=== PATIENT | male | born 1985 | race Caucasian/White ===

== ENCOUNTER 2016-09-19 23:24 | Emergency (ER) | payer SELFPAY ==
--- NOTE | 2016-09-20 00:30 | DIAGNOSTIC IMAGING REPORT ---
PROCEDURE: CT ABDOMEN/PELVIS W/O CONTRAST INDICATION: ABDOMINAL PAIN TECHNIQUE: Noncontrast axial images with sagittal and coronal reformations. COMPARISON: None. FINDINGS: ABDOMEN: There is mild to moderate right hydronephrosis and hydroureter secondary to a 3 mm calculus located at the ureteral vesicle junction. There are 1 mm and 0.5 mm nonobstructing right lower pole renal calculi. Left kidney and ureter are normal. Gallbladder is contracted (with moderate ingested material in the stomach). Moderate stool in the right colon. Bowel pattern is otherwise normal, including appendix. Liver, spleen, pancreas, and aorta are normal. PELVIS: Pelvic structures are normal. IMPRESSION: 1. Mild to moderate right hydronephrosis and hydroureter secondary to a 3 mm calculus located at the ureteral vesicle junction. 2. There are 1 mm and 0.5 mm nonobstructing right lower pole renal calculi. 3. Moderate stool in the right colon. Consider obstipation. 4. Findings discussed with Dr. Nolan Marmolejo. All CT scans at this facility use dose modulation, iterative reconstruction, and/or weight-based dosing when appropriate to reduce radiation dose to as low as reasonably achievable.
--- NOTE | 2016-09-20 00:50 | ED CLINICAL REPORT ---
Clinical Report - Physicians/Mid Levels [facility] [address] [place] [address] 09/19/2016 23:24 [id number] Time Seen: 23:43 Apr 2016. Arrived- By private vehicle. Historian- patient. CPT: ER phys charges level 4 (#[id number]). HISTORY OF PRESENT ILLNESS Chief Complaint: FLANK PAIN. At its maximum, severity described as moderate. When seen in the E.D., severity described as moderate. Modifying factors. Not worsened by anything. Not relieved by anything. This started yesterday. It is described as "pain" and sharp and it is described as located in the right flank. No nausea, loss of appetite, vomiting or diarrhea. Similar symptoms previously: None. Recent medical care: Not recently seen/assessed. REVIEW OF SYSTEMS No constipation, black stools, hematemesis, difficulty with urination or pain with urination. No urinary frequency, fever, sore throat, chest pain or difficulty breathing. No cough, joint pain, skin rash or chills. The patient has had back pain. PAST HISTORY No history of peptic ulcer. No history of gallstones or bowel obstruction. Has not had urinary calculi. Surgeries: No prior abdominal surgery. Medications: None. None. None. None. Allergies: Erythromycin. SOCIAL HISTORY Light tobacco smoker (cigarette)- less than 1/2 a pack per day. No alcohol use or drug use. ADDITIONAL NOTES The nursing notes have been reviewed. PHYSICAL EXAM Vital Signs: 09/19/2016 23:33 BP: 134/76. HR: 85. RR: 22. O2 saturation: 100%. Appearance: Alert. Patient in mild distress. Eyes: Eyes normal inspection. ENT: Pharynx normal. Neck: Normal inspection. CVS: Normal heart rate and rhythm. Heart sounds normal. Pulses normal. Respiratory: No respiratory distress. Breath sounds normal. Chest nontender. Abdomen: Soft and nontender. Bowel sounds normal. Back: Normal inspection. No CVA tenderness or tenderness, limitation in ROM, vertebral point tenderness or muscle spasm. Skin: Skin warm. Normal skin color. No rash. Extremities: Extremities exhibit normal ROM. No lower extremity edema. Neuro: Oriented X 3. No motor deficit. No sensory deficit. Reflexes normal. LABS, X-RAYS, AND EKG Abdominal CT: A single urinary calculus is present in the right distal ureter (3 mm). There is moderate obstruction. Hydronephrosis. 2 small stones in the right kidney. Abdominal CT performed without contrast. The study was independently viewed by me, interpreted by the radiologist and discussed with the radiologist. Laboratory Tests: UA-Culture if indicated: (ERICK: 09/19/2016 23:40) ( MsgRcvd 09/20/2016 00:03) Final results Test Result Flag Units (Reference) URINE COLOR YELLOW URINE APPEARANCE SLIGHTLY HAZY URINE GLUCOSE NEGATIVE (NEGATIVE) URINE BILIRUBIN NEGATIVE (NEGATIVE) URINE KETONE NEGATIVE (NEGATIVE) URINE SPECIFIC GRAVITY 1.020 (1.010-1.030) URINE PH 6.0 (5.0-8.0) URINE PROTEIN NEGATIVE (NEGATIVE) URINE UROBILINOGEN 1.0 EU/dL (0.2-1.0) URINE NITRITE NEGATIVE (NEGATIVE) URINE BLOOD 3+ (NEGATIVE) URINE LEUK ESTERASE NEGATIVE (NEGATIVE) URINE RBC 75-100 rbc/hpf (0-1) URINE WBC 1-3 wbc/hpf (0-1) URINE EPITHELIAL CELLS NONE SEEN EPI/hpf (0-5) URINE BACTERIA NONE SEEN (NONE SEEN) URINE COMMENT CULT NOT INDICATED URINE CULTURES ARE SET-UP BASED ON THE FOLLOWING CRITERIA:POSITIVE NITRITEPOSITIVE LEUKOCYTE ESTERASEGREATER THAN 10 WHITE BLOOD CELLSMODERATE (2+) OR GREATER BACTERIA . PROGRESS AND PROCEDURES Course of Care: IV NS Toradol 30 mg IV Flomax 0.4 mg po Patient is stable. Symptoms much better. Patient/family counseled. Disposition: Discharged. Condition: stable and improved. CLINICAL IMPRESSION Ureterolithiasis (single stone) in the right ureter with renal colic and hydronephrosis. INSTRUCTIONS Do not work for two days until better. Drink plenty of fluids. (Strain urine). Warnings: Further evaluation is necessary. GENERAL WARNINGS: Return or contact your physician immediately if your condition worsens or changes unexpectedly, if not improving as expected, or if other problems arise. Prescription Medications: Zofran (orally disintegrating tablets) 4 mg: take 1 orally every 6 hours as needed for nausea. Dispense five (5). No refill. Oxycodone/APAP 5 mg/325 mg: take 1-2 tablets orally every 4 hours as needed for pain. Dispense twenty (20). No refill. Follow-up: Follow up with your doctor in two days if not better. Understanding of the discharge instructions verbalized by patient. (Electronically signed by Nolan Marmolejo MD 09/27/2016 16:03)
--- NOTE | 2016-09-20 00:50 | ED CLINICAL REPORT ---
Clinical Report - Physicians/Mid Levels [facility] [address] [place] [address] 09/19/2016 23:24 [id number] Time Seen: 23:43 Apr 2016. Arrived- By private vehicle. Historian- patient. CPT: ER phys charges level 4 (#[id number]). HISTORY OF PRESENT ILLNESS Chief Complaint: FLANK PAIN. At its maximum, severity described as moderate. When seen in the E.D., severity described as moderate. Modifying factors. Not worsened by anything. Not relieved by anything. This started yesterday. It is described as "pain" and sharp and it is described as located in the right flank. No nausea, loss of appetite, vomiting or diarrhea. Similar symptoms previously: None. Recent medical care: Not recently seen/assessed. REVIEW OF SYSTEMS No constipation, black stools, hematemesis, difficulty with urination or pain with urination. No urinary frequency, fever, sore throat, chest pain or difficulty breathing. No cough, joint pain, skin rash or chills. The patient has had back pain. PAST HISTORY No history of peptic ulcer. No history of gallstones or bowel obstruction. Has not had urinary calculi. Surgeries: No prior abdominal surgery. Medications: None. None. None. None. Allergies: Erythromycin. SOCIAL HISTORY Light tobacco smoker (cigarette)- less than 1/2 a pack per day. No alcohol use or drug use. ADDITIONAL NOTES The nursing notes have been reviewed. PHYSICAL EXAM Vital Signs: 09/19/2016 23:33 BP: 134/76. HR: 85. RR: 22. O2 saturation: 100%. Appearance: Alert. Patient in mild distress. Eyes: Eyes normal inspection. ENT: Pharynx normal. Neck: Normal inspection. CVS: Normal heart rate and rhythm. Heart sounds normal. Pulses normal. Respiratory: No respiratory distress. Breath sounds normal. Chest nontender. Abdomen: Soft and nontender. Bowel sounds normal. Back: Normal inspection. No CVA tenderness or tenderness, limitation in ROM, vertebral point tenderness or muscle spasm. Skin: Skin warm. Normal skin color. No rash. Extremities: Extremities exhibit normal ROM. No lower extremity edema. Neuro: Oriented X 3. No motor deficit. No sensory deficit. Reflexes normal. LABS, X-RAYS, AND EKG Abdominal CT: A single urinary calculus is present in the right distal ureter (3 mm). There is moderate obstruction. Hydronephrosis. 2 small stones in the right kidney. Abdominal CT performed without contrast. The study was independently viewed by me, interpreted by the radiologist and discussed with the radiologist. Laboratory Tests: UA-Culture if indicated: (ERICK: 09/19/2016 23:40) ( MsgRcvd 09/20/2016 00:03) Final results Test Result Flag Units (Reference) URINE COLOR YELLOW URINE APPEARANCE SLIGHTLY HAZY URINE GLUCOSE NEGATIVE (NEGATIVE) URINE BILIRUBIN NEGATIVE (NEGATIVE) URINE KETONE NEGATIVE (NEGATIVE) URINE SPECIFIC GRAVITY 1.020 (1.010-1.030) URINE PH 6.0 (5.0-8.0) URINE PROTEIN NEGATIVE (NEGATIVE) URINE UROBILINOGEN 1.0 EU/dL (0.2-1.0) URINE NITRITE NEGATIVE (NEGATIVE) URINE BLOOD 3+ (NEGATIVE) URINE LEUK ESTERASE NEGATIVE (NEGATIVE) URINE RBC 75-100 rbc/hpf (0-1) URINE WBC 1-3 wbc/hpf (0-1) URINE EPITHELIAL CELLS NONE SEEN EPI/hpf (0-5) URINE BACTERIA NONE SEEN (NONE SEEN) URINE COMMENT CULT NOT INDICATED URINE CULTURES ARE SET-UP BASED ON THE FOLLOWING CRITERIA:POSITIVE NITRITEPOSITIVE LEUKOCYTE ESTERASEGREATER THAN 10 WHITE BLOOD CELLSMODERATE (2+) OR GREATER BACTERIA . PROGRESS AND PROCEDURES Course of Care: IV NS Toradol 30 mg IV Flomax 0.4 mg po Patient is stable. Symptoms much better. Patient/family counseled. Disposition: Discharged. Condition: stable and improved. CLINICAL IMPRESSION Ureterolithiasis (single stone) in the right ureter with renal colic and hydronephrosis. INSTRUCTIONS Do not work for two days until better. Drink plenty of fluids. (Strain urine). Warnings: Further evaluation is necessary. GENERAL WARNINGS: Return or contact your physician immediately if your condition worsens or changes unexpectedly, if not improving as expected, or if other problems arise. Prescription Medications: Zofran (orally disintegrating tablets) 4 mg: take 1 orally every 6 hours as needed for nausea. Dispense five (5). No refill. Oxycodone/APAP 5 mg/325 mg: take 1-2 tablets orally every 4 hours as needed for pain. Dispense twenty (20). No refill. Follow-up: Follow up with your doctor in two days if not better. Understanding of the discharge instructions verbalized by patient. (Electronically signed by Nolan Marmolejo MD 09/27/2016 16:03)
--- NOTE | 2016-09-20 00:50 | ED ORDER SUMMARY ---
..... Patient: MARANDA HUTSON OrderSheet Merg[facility] VisitID: [id number] [place] [address] 31y, M Registration Date/Time: 09/19/2016 ORDER SHEET Weight: 86.1 kg (stated) Allergies: Erythromycin GENERAL ORDERS: CT Abd/Pel wo Cont Urgent (23:47 09/19/2016 Lynn ESCOBEDO) (Ack 23:52 IJurca ER Tech1) (0:00 TLewis R.N.) UA-Culture if indicated Urgent (23:47 09/19/2016 Lynn ESCOBEDO) (Ack 23:52 IJurca ER Tech1) (0:00 TLewis R.N.) MEDICATION ORDERS: Flomax PO 0.4 mg (NOW) (00:49 09/20/2016 Lynn ESCOBEDO) (Ack 0:49 JDeElena R.N.) (0:52 JDeElena R.N.) IV FLUIDS: IV NS : initial bolus 1000 mL (1000 mL/hr), then none - (NOW); Routine (23:48 09/19/2016 Lynn ESCOBEDO) (Ack 0:00 HSoule) (0:44 JDeElena R.N.) Toradol IV 30 mg (NOW) (00:48 09/20/2016 Lynn ESCOBEDO) (Ack 0:48 JDeElena R.N.) (0:52 JDeElena R.N.) ORDER SHEET NOTES: [Electronically signed by Higinio Diamond R.N. (:09/20/2016)] [Electronically signed by Nolan Marmolejo MD (16:03 09/27/2016)] [Electronically locked/signed by Higinio Diamond R.N. (09/20/2016)]
--- NOTE | 2016-09-20 00:50 | ED ORDER SUMMARY ---
..... Patient: MARANDA HUTSON OrderSheet [facility] VisitID: [id number] [place] [address] 31y, M Registration Date/Time: 09/19/2016 ORDER SHEET Weight: 86.1 kg (stated) Allergies: Erythromycin GENERAL ORDERS: CT Abd/Pel wo Cont Urgent (23:47 09/19/2016 Lynn ESCOBEDO) (Ack 23:52 IJurca ER Tech1) (0:00 TLewis R.N.) UA-Culture if indicated Urgent (23:47 09/19/2016 Lynn ESCOBEDO) (Ack 23:52 IJurca ER Tech1) (0:00 TLewis R.N.) MEDICATION ORDERS: Flomax PO 0.4 mg (NOW) (00:49 09/20/2016 Lynn ESCOBEDO) (Ack 0:49 JDeElena R.N.) (0:52 JDeElena R.N.) IV FLUIDS: IV NS : initial bolus 1000 mL (1000 mL/hr), then none - (NOW); Routine (23:48 09/19/2016 Lynn ESCOBEDO) (Ack 0:00 HSoule) (0:44 JDeElena R.N.) Toradol IV 30 mg (NOW) (00:48 09/20/2016 Lynn ESCOBEDO) (Ack 0:48 JDeElena R.N.) (0:52 JDeElena R.N.) ORDER SHEET NOTES: [Electronically signed by Higinio Diamond R.N. (:09/20/2016)] [Electronically signed by Nolan Marmolejo MD (16:03 09/27/2016)] [Electronically locked/signed by Higinio Diamond R.N. (09/20/2016)]
--- NOTE | 2016-09-20 00:50 | ED NURSING NOTES ---
Clinical Report - Nurses [facility] [address] [place] [address] 09/19/2016 23:24 Patient: MARANDA HUTSON TRIAGE Triage time 23:33. Acuity: LEVEL 3. Chief Complaint: BACK PAIN and (right flank pain). --23:38 Lew Stern R.N. 23:33 09/19/16. BP: 134/76. HR: 85. RR: 22. O2 saturation: 100%. --23:38 Lew Stern R.N. Weight: 86.1 kg stated. Height/Length: 71 inches Per Patient. BMI: 26.5. --23:37 Lew Stern R.N. Medications None. --23:36 Lew Stern R.N. None. None. None. --23:36 Lew Stern R.N. Medication/allergy information source: the patient. --23:38 Lew Stern R.N. Allergies Erythromycin. --23:36 Lew Stern R.N. History Arrived by private vehicle. Historian: patient. Accompanied by family. This started yesterday. ( pt came in with right sided flank pain for the past 2 days. Pt denies any injury. Pt denies any urinary symptoms. Pt denies any blood in urine.). No history of recent trauma. ( Pt is having tenderness on the right side.). 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 SOCIAL HX: Smoker- current status unknown (cigarette) (5 cig a day). No alcohol use or drug use. --23:38 Lew Stern R.N. PROBLEMS: Dental Pain. Immunizations. --23:37 Lew Stern R.N. Interventions ID band on patient. --23:38 Lew Stern R.N. PHYSICAL ASSESSMENT To room via wheelchair. GENERAL / NEURO / PSYCH: Alert. Oriented X 4. Appears in pain. RESPIRATORY: No respiratory distress. Respirations not labored. Breath sounds within normal limits. CVS: Heart sounds within normal limits. Pulses: right radial 2+ and left radial 2+. Capillary refill less than 2 seconds. GI / : Abdomen soft and nontender. Bowel sounds within normal limits. ( Tympanic sounds on percussion in all quadrants. No pain at McBurney's point, negative Rovsing's and Bah's sign.). CVA tenderness on the right (Severe). SKIN: Skin is pale. Skin is clammy. --23:41 Higinio Diamond R.N. NURSING PROGRESS NOTES The initial plan of care for this patient has been created This plan of care was discussed with the patient. Patient gowned. Reassurance given to the patient. Two patient identifiers checked. Call light placed in reach. Side rails up x 1. Bed placed in lowest position. Brakes of bed on. Patient ready for evaluation- ED physician and PA notified. --23:42 Higinio Diamond R.N. Patient ID band checked for patient name and birthdate: patient confirmed. Instructions provided to collect clean catch urine and patient verbalized understanding. Clean catch urine collected with return of noe-colored clear urine; sample sent to lab for urinalysis. Specimen labeled in the presence of the patient. ( Pt states after urinating his pain is completely resolved.). --23:43 Higinio Diamond R.N. 23:58 09/19/2016 Site #1 started via IV in the right antecubital space with an 20g angiocath, with aseptic technique and good blood return; one attempt. Blood drawn: rainbow set. Labeled in the presence of the patient and sent to the lab. Saline lock flushed with 10 mL saline. --23:58 Lew Stern R.N. Patient transported to CT by stretcher. (23:58). --23:58 Lew Stern R.N. 00:44 09/20/2016 Started bag #1 1000 mL IV Fluids IV NS (Saline); at 1000 mL/hr over 1 hour(s) via site #1. Allergies verified and confirmed 5 rights. IV patency established. IV site checked: no pain, redness, or swelling. IV flushed thoroughly pre- and post-medication administration. Completed per protocol. --00:44 Higinio Diamond R.N. 00:48 09/20/16. BP: 127/70 (regular adult cuff) taken on the left arm, via an automated monitor, while lying. HR: 88 (normal rate). RR: 16 (regular, unlabored and normal). O2 saturation: 99% on room air. Pain level now: 07/09. --00:48 Higinio Diamond R.N. The patient is calm and resting quietly. GENERAL / NEURO / PSYCH: Alert. Oriented X 4. RESPIRATORY: No respiratory distress. SKIN: Skin is warm and dry. Skin color within normal limits. --00:48 Higinio Diamond R.N. 00:52 09/20/2016 Toradol IVP 30 mg given over 2 minute(s) via site #1. Allergies verified and confirmed 5 rights. IV patency established. IV site checked: no pain, redness, or swelling. IV flushed thoroughly pre- and post-medication administration. IVP given by RN. --00:52 Higinio Diamond R.N. 00:52 09/20/2016 Flomax (Tamsulosin HCl) PO Capsules 0.4 mg given. Allergies verified and confirmed 5 rights. --00:52 Higinio Diamond R.N. 01:20 09/20/2016 IV Fluids IV NS Discontinued: bag #1 completed upon discharge. Total amount infused: 1000 mL. IV patency established. IV site checked: no pain, redness, or swelling. IV flushed thoroughly. --01:20 Higinio Diamond R.N. 01:20 09/20/2016 Toradol IVP Response: no adverse reaction symptoms have improved the patient feels better. --01:20 Higinio Diamond R.N. 01:20 09/20/2016 Flomax PO Response: no adverse reaction symptoms have improved the patient feels better. --01:20 Higinio Diamond R.N. DISPOSITION / DISCHARGE Departure time: 01:19. Condition at departure: stable. The goals identified in the patient's plan of care were met. No learning barriers present. Discharge instructions provided and reviewed with the patient. Reviewed medication(s) side effects, precautions, dosing and course information. Prescription(s) given to the patient (Maranda verbalizes importance of not driving and/or operating heavy machinery while under influence of narcotics. He verbalizes safe, proper use of all prescribed for optimal pain management at home.). Patient verbalized understanding. Written instructions provided in Filipino. ( Urine strainers given to ptMahi Felton verbalizes understanding of all d/c instructions including need to f/u with PCP. He has no questions and voices no concerns at this time.). The patient was discharged by the physician. He was discharged home and unaccompanied at time of discharge. He left the Emergency Department ambulatory and via private vehicle. Patient driving. KIM COMA SCORE: [place] Coma Scale: 15- eyes open spontaneously (4); best verbal response- oriented x 4 (5); best motor response- obeys commands (6). --01:22 Higinio Diamond R.N. 01:20 09/20/16. BP: 140/73 (regular adult cuff) taken on the left arm, via an automated monitor, while lying. HR: 81 (normal rate). RR: 16 (regular, unlabored and normal). O2 saturation: 99% on room air. Temp: 99 F (oral). Pain level now: 0/10. --01:22 Higinio Diamond R.N. Locked/Released at 09/20/2016 1:23 by Higinio Diamond R.N.
--- NOTE | 2016-09-27 16:04 | ED MED RECONCILIATION SUMMARY ---
Patient: MARANDA HUTSON Medication Reconciliation Report [facility] VisitID: [id number] [place] [address] 31y, M Registration Date/Time: 09/19/2016 Weight: 86.1 kg Height/Length: 71 in. BMI: 26.5 ALLERGIES: Erythromycin The patient's Home Medications are listed below: NONE. The source(s) of the original Home Medication information: patient The following Medications were given to the patient in the Emergency Department: IV NS IV Fluids bolus 0, then 1000 mL/hr, administered: 09/20/2016 12:44:00 AM Toradol [IVP] IVP 30 mg, administered: 09/20/2016 12:52:00 AM Flomax [PO] PO 0.4 mg, administered: 09/20/2016 12:52:00 AM The following Medications were prescribed to the patient: Zofran (orally disintegrating tablets) 4 mg: take 1 orally every 6 hours as needed for nausea. Dispense five (5). No refill. -- Nolan Marmolejo MD Oxycodone/APAP 5 mg/325 mg: take 1-2 tablets orally every 4 hours as needed for pain. Dispense twenty (20). No refill. -- Nolan Marmolejo MD
--- NOTE | 2016-09-27 16:04 | ED MAR SUMMARY ---
..... Medication Administration Record [facility] [address] [place] [address] Patient: MARANDA HUTSON Visit ID: [id number] 31y, M Weight: 86.1 kg Height/Length: 71 in BMI: 26.5 ALLERGIES: Erythromycin Start 00:44 09/20/2016 Higinio Diamond R.N., Stop 01:20 09/20/2016 Higinio Diamond R.N. Medication Administered: IV NS (SALINE), Dose: IV Fluids over 1 hour(s), Rate: 1000 mL/hr, Dispensed: 1000 mL bag, Site: #1 right AC. Medication Ordered: IV NS : initial bolus 1000 mL (1000 mL/hr), then none - (NOW); Routine. Given 00:52 09/20/2016 Higinio Diamond R.N. Medication Administered: TORADOL [IVP], Dose: 30 mg IVP over 2 minute(s), Site: #1 right AC. Medication Ordered: Toradol IV 30 mg (NOW). Given 00:52 09/20/2016 Higinio Diamond R.N. Medication Administered: FLOMAX [PO] (TAMSULOSIN HCL), Dose: 0.4 mg Capsules PO. Medication Ordered: Flomax PO 0.4 mg (NOW).
--- NOTE | 2016-09-27 16:04 | ED MED RECONCILIATION SUMMARY ---
Patient: MARANDA HUTSON Medication Reconciliation Report [facility] VisitID: [id number] [place] [address] 31y, M Registration Date/Time: 09/19/2016 Weight: 86.1 kg Height/Length: 71 in. BMI: 26.5 ALLERGIES: Erythromycin The patient's Home Medications are listed below: NONE. The source(s) of the original Home Medication information: patient The following Medications were given to the patient in the Emergency Department: IV NS IV Fluids bolus 0, then 1000 mL/hr, administered: 09/20/2016 12:44:00 AM Toradol [IVP] IVP 30 mg, administered: 09/20/2016 12:52:00 AM Flomax [PO] PO 0.4 mg, administered: 09/20/2016 12:52:00 AM The following Medications were prescribed to the patient: Zofran (orally disintegrating tablets) 4 mg: take 1 orally every 6 hours as needed for nausea. Dispense five (5). No refill. -- Nolan Marmolejo MD Oxycodone/APAP 5 mg/325 mg: take 1-2 tablets orally every 4 hours as needed for pain. Dispense twenty (20). No refill. -- Nolan Marmolejo MD
--- NOTE | 2016-09-27 16:04 | ED DISCHARGE INSTRUCTIONS ---
Patient: MARANDA HUTSON General Instructions [facility] VisitID: [id number] [place] [address] 31y, M Registration Date/Time: 09/19/2016 Ureterolithiasis (single stone) in the right ureter with renal colic and hydronephrosis. INSTRUCTIONS Do not work for two days until better. Drink plenty of fluids. (Strain urine). Warnings: Further evaluation is necessary. GENERAL WARNINGS: Return or contact your physician immediately if your condition worsens or changes unexpectedly, if not improving as expected, or if other problems arise. Prescription Medications: Zofran (orally disintegrating tablets) 4 mg: take 1 orally every 6 hours as needed for nausea. Dispense five (5). No refill. Oxycodone/APAP 5 mg/325 mg: take 1-2 tablets orally every 4 hours as needed for pain. Dispense twenty (20). No refill. Follow-up: Follow up with your doctor in two days if not better. Understanding of the discharge instructions verbalized by patient. ADDITIONAL INFORMATION Kidney Stone (W/ Colic) The sharp cramping pain and nausea/vomiting that you have is due to a small stone which has formed in the kidney and is now passing down a narrow tube (ureter) on its way to your bladder. Once it reaches your bladder, the pain will stop. The stone may pass in your urine stream in one piece. [The size may be 1/16" to 1/4" (1-6mm)]. Or, the stone may also break up into dandre fragments which you may not even notice. Once you have had a kidney stone, you are at risk for developing another one in the future. Home Care: Drink plenty of fluids (at least 8 to 10 glasses of water a day). Most stones will pass on their own, but may take from a few hours to a few days. Sometimes the stone is too large to pass by itself and special methods will have to be used to remove the stone. Each time you urinate, do so in a jar. Pour the urine from the jar through the strainer and into the toilet. Continue doing this until 24 hours after your pain stops. By then, if there was a kidney stone, it should pass from your bladder. Some stones dissolve into sand-like particles and pass right through the strainer. In that case, you wont ever see a stone. Save any stone that you find in the strainer and bring it to your doctor for analysis. It may be possible to prevent certain types of stones from forming. Therefore, it is important to know what kind of stone you have. Try to stay as active as possible since this will help the stone pass. Do not stay in bed unless your pain prevents you from getting up. You may notice a red, pink or brown color to your urine. This is normal while passing a kidney stone. Follow Up with your doctor or return to this facility if the pain lasts more than 48 hours. Get Prompt Medical Attention if any of the following occur: Pain that is not controlled by the medicine given Repeated vomiting or unable to keep down fluids Weakness, dizziness or fainting Fever of 100.4F (38C) or higher, or as directed by your healthcare provider Passage of solid red or brown urine (can't see through it) or urine with lots of blood clots Unable to pass urine for 8 hours and increasing bladder pressure Ondansetron Oral disintegrating tablet What is this medicine? ONDANSETRON (on HELEN se raisa) is used to treat nausea and vomiting caused by chemotherapy. It is also used to prevent or treat nausea and vomiting after surgery. How should I use this medicine? These tablets are made to dissolve in the mouth. Do not try to push the tablet through the foil backing. With dry hands, peel away the foil backing and gently remove the tablet. Place the tablet in the mouth and allow it to dissolve, then swallow. While you may take these tablets with water, it is not necessary to do so. Talk to your computer networker regarding the use of this medicine in children. Special care may be needed. What side effects may I notice from receiving this medicine? Side effects that you should report to your doctor or health pediatric critical care nurse as soon as possible: allergic reactions like skin rash, itching or hives, swelling of the face, lips, or tongue breathing problems dizziness fast or irregular heartbeat feeling faint or lightheaded, falls fever and chills swelling of the hands and feet tightness in the chest Side effects that usually do not require medical attention (report to your doctor or health pediatric critical care nurse if they continue or are bothersome): constipation or diarrhea headache What may interact with this medicine? Do not take this medicine with any of the following medications: -apomorphine -cisapride -dofetilide -dronedarone -pimozide -thioridazine -ziprasidone This medicine may also interact with the following medications: -carbamazepine -phenytoin -rifampicin -tramadol -other medicines that prolong the QT interval (cause an abnormal heart rhythm) What if I miss a dose? If you miss a dose, take it as soon as you can. If it is almost time for your next dose, take only that dose. Do not take double or extra doses. Where should I keep my medicine? Keep out of the reach of children. Store between 2 and 30 degrees C (36 and 86 degrees F). Throw away any unused medicine after the expiration date. What should I tell my health care provider before I take this medicine? They need to know if you have any of these conditions: heart disease history of irregular heartbeat liver disease low levels of magnesium or potassium in the blood an unusual or allergic reaction to ondansetron, granisetron, other medicines, foods, dyes, or preservatives or trying to get breast-feeding What should I watch for while using this medicine? Check with your doctor or health pediatric critical care nurse as soon as you can if you have any sign of an allergic reaction. Oxycodone Hydrochloride, Acetaminophen Oral tablet What is this medicine? ACETAMINOPHEN; OXYCODONE (a set a JOHN rosenda fen; ox i KOE done) is a pain reliever. It is used to treat mild to moderate pain. How should I use this medicine? Take this medicine by mouth with a full glass of water. Follow the directions on the prescription label. Take your medicine at regular intervals. Do not take your medicine more often than directed. Talk to your computer networker regarding the use of this medicine in children. Special care may be needed. Patients over 65 years old may have a stronger reaction and need a smaller dose. What side effects may I notice from receiving this medicine? Side effects that you should report to your doctor or health pediatric critical care nurse as soon as possible: allergic reactions like skin rash, itching or hives, swelling of the face, lips, or tongue breathing difficulties, wheezing confusion light headedness or fainting spells severe stomach pain yellowing of the skin or the whites of the eyes Side effects that usually do not require medical attention (report to your doctor or health pediatric critical care nurse if they continue or are bothersome): dizziness drowsiness nausea vomiting What may interact with this medicine? alcohol antihistamines barbiturates like amobarbital, butalbital, butabarbital, methohexital, pentobarbital, phenobarbital, thiopental, and secobarbital benztropine drugs for bladder problems like solifenacin, trospium, oxybutynin, tolterodine, hyoscyamine, and methscopolamine drugs for breathing problems like ipratropium and tiotropium drugs for certain stomach or intestine problems like propantheline, homatropine methylbromide, glycopyrrolate, atropine, belladonna, and dicyclomine general anesthetics like etomidate, ketamine, nitrous oxide, propofol, desflurane, enflurane, halothane, isoflurane, and sevoflurane medicines for depression, anxiety, or psychotic disturbances medicines for sleep muscle relaxants naltrexone narcotic medicines (opiates) for pain phenothiazines like perphenazine, thioridazine, chlorpromazine, mesoridazine, fluphenazine, prochlorperazine, promazine, and trifluoperazine scopolamine tramadol trihexyphenidyl What if I miss a dose? If you miss a dose, take it as soon as you can. If it is almost time for your next dose, take only that dose. Do not take double or extra doses. Where should I keep my medicine? Keep out of the reach of children. This medicine can be abused. Keep your medicine in a safe place to protect it from theft. Do not share this medicine with anyone. Selling or giving away this medicine is dangerous and against the law. Store at room temperature between 20 and 25 degrees C (68 and 77 degrees F). Keep container tightly closed. Protect from light. This medicine may cause accidental overdose and if it is taken by other adults, children, or pets. Flush any unused medicine down the toilet to reduce the chance of harm. Do not use the medicine after the expiration date. What should I tell my health care provider before I take this medicine? They need to know if you have any of these conditions: brain tumor Crohn's disease, inflammatory bowel disease, or ulcerative colitis drink more than 3 alcohol containing drinks per day drug abuse or addiction head injury heart or circulation problems kidney disease or problems going to the bathroom liver disease lung disease, asthma, or breathing problems an unusual or allergic reaction to acetaminophen, oxycodone, other opioid analgesics, other medicines, foods, dyes, or preservatives or trying to get breast-feeding What should I watch for while using this medicine? Tell your doctor or health pediatric critical care nurse if your pain does not go away, if it gets worse, or if you have new or a different type of pain. You may develop tolerance to the medicine. Tolerance means that you will need a higher dose of the medication for pain relief. Tolerance is normal and is expected if you take this medicine for a long time. Do not suddenly stop taking your medicine because you may develop a severe reaction. Your body becomes used to the medicine. This does NOT mean you are addicted. Addiction is a behavior related to getting and using a drug for a non-medical reason. If you have pain, you have a medical reason to take pain medicine. Your doctor will tell you how much medicine to take. If your doctor wants you to stop the medicine, the dose will be slowly lowered over time to avoid any side effects. You may get drowsy or dizzy. Do not drive, use machinery, or do anything that needs mental alertness until you know how this medicine affects you. Do not stand or sit up quickly, especially if you are an older patient. This reduces the risk of dizzy or fainting spells. Alcohol may interfere with the effect of this medicine. Avoid alcoholic drinks. There are different types of narcotic medicines (opiates) for pain. If you take more than one type at the same time, you may have more side effects. Give your health care provider a list of all medicines you use. Your doctor will tell you how much medicine to take. Do not take more medicine than directed. Call emergency for help if you have problems breathing. The medicine will cause constipation. Try to have a bowel movement at least every 2 to 3 days. If you do not have a bowel movement for 3 days, call your doctor or health pediatric critical care nurse. Do not take Tylenol (acetaminophen) or medicines that have acetaminophen with this medicine. Too much acetaminophen can be very dangerous. Many nonprescription medicines contain acetaminophen. Always read the labels carefully to avoid taking more acetaminophen. You have been given the following additional information: Kidney Stone W/ Colic Ondansetron Oral disintegrating tablet Oxycodone Hydrochloride, Acetaminophen Oral tablet Do not work for two days until better. (Electronically signed by Nolan Marmolejo MD 09/27/2016 16:03)
--- NOTE | 2016-09-27 16:04 | ED MAR SUMMARY ---
..... Medication Administration Record [facility] [address] [place] [address] Patient: MARANDA HUTSON Visit ID: [id number] 31y, M Weight: 86.1 kg Height/Length: 71 in BMI: 26.5 ALLERGIES: Erythromycin Start 00:44 09/20/2016 Higinio Diamond R.N., Stop 01:20 09/20/2016 Higinio Diamond R.N. Medication Administered: IV NS (SALINE), Dose: IV Fluids over 1 hour(s), Rate: 1000 mL/hr, Dispensed: 1000 mL bag, Site: #1 right AC. Medication Ordered: IV NS : initial bolus 1000 mL (1000 mL/hr), then none - (NOW); Routine. Given 00:52 09/20/2016 Higinio Diamond R.N. Medication Administered: TORADOL [IVP], Dose: 30 mg IVP over 2 minute(s), Site: #1 right AC. Medication Ordered: Toradol IV 30 mg (NOW). Given 00:52 09/20/2016 Higinio Diamond R.N. Medication Administered: FLOMAX [PO] (TAMSULOSIN HCL), Dose: 0.4 mg Capsules PO. Medication Ordered: Flomax PO 0.4 mg (NOW).
== END 2016-09-20 01:19 | disposition home or self-care (01) ==
LOC: ED SRH 23:24
DX: N20.1 Calculus of ureter (principal); N23 Unspecified renal colic; N13.30 Unspecified hydronephrosis; F17.210 Nicotine dependence, cigarettes, uncomplicated
CPT/HCPCS: 90004